=== PATIENT | male | born 1945 | race Caucasian/White ===

== ENCOUNTER 2020-10-10 00:49 | Emergency (ER) | payer MEDICARE, SELFPAY ==
--- NOTE | ~2020-10-10 | XR_ITS ---
EXAMINATION: XR chest 1V portable EXAM DATE: 10/10/2020 01:44 INDICATION: Fever. TECHNIQUE: Portable AP frontal chest x-ray was obtained. Correlation is made to pulmonary CT which wa s subsequently obtained. FINDINGS: The lungs are clear. There are no pleural effusions. Cardiac silhouette is prominent but magnified on this AP technique. There is no pneumothorax suspected. The bones and soft tissues are unremarkable. IMPRESSION: No acute cardiopulmonary findings. Reviewed, dictated and finalized at location A. SERVICE TECHNICIAN
--- NOTE | ~2020-10-10 | CT_ITS ---
EXAMINATION: CTA chest PE protocol EXAM DATE: 10/10/2020 03:39 INDICATION: Dyspnea. TECHNIQUE: Spiral CTA of the chest (pulmonary arteries) was performed with 100 cc Omnipaque 350 intr avenous contrast injection. Images were acquired during the pulmonary arterial phase. Coronal maxi mum intensity projection 3D-reconstructions were created by the technologist on dedicated workstation . Axial, coronal and sagittal reformatted images were reviewed. The dose-length product (DLP) for t his examination was 654.52 mGy-cm. The exposure was tailored according to patient size (auto mA exp osure control), and iterative reconstruction (ASIR) was used as additional dose reduction technique. There is no prior study for comparison. FINDINGS: There are no pulmonary emboli in the 1st through 3rd order (central and interlobar) pulmon edgar arteries. Some loss of attenuation in the segmental pulmonary arteries due to respiratory motion , but no intraluminal filling defects suspected. No thoracic aortic dissection. The lungs are imelda r. There are no pleural or pericardial effusions. Tracheobronchial tree is patent. There is no mediastinal, hilar or axillary lymphadenopathy. There is no pneumothorax. Heart normal in size. There is moderate coronary arterial calcification, arterial sclerosis. Upper abdomen is unremarkabl e. There is thoracic spondylosis without osteoblastic or osteolytic lesions identified. IMPRESSION: 1. No pulmonary emboli or acute findings. Reviewed, dictated and finalized at location A. RCOATER
[2020-10-10 00:52] VITALS: BP 124/76; PULSE 119; RESP 22; TEMP 37.2; O2SAT 96
[2020-10-10 00:59] VITALS: RESP 20; O2SAT 94
--- NOTE | 2020-10-10 01:05 | ED.GENADULT ---
HPI - General Adult General Chief complaint: Fever Stated complaint: prostate biopsy 10/07 - fever shakes Time Seen by Provider: 10/10/20 00:52 Source: RN notes reviewed History of Present Illness HPI narrative: Patient presents emergency room from home for fever. Patient states he has had a intermittent fever for the past 2 days since having a prostate biopsy done on 10/07/[address] Lara. Patient states that he is not currently on any antibiotics he states fevers been up to 101 does improve with ibuprofen which he last took prior to arrival he does note mild intermittent cough but denies any shortness of breath abdominal pain nausea vomiting or any other symptoms states he does have times where he does not feel like he fully empties Related Data Allergies Allergy/AdvReac Type Severity Reaction Status Date / Time No Known Allergies Allergy Mild Verified 09/25/20 10:48 Review of Systems Review of Systems: Narrative: Gen.: Reports fever ENT: Denies congestion Respiratory: Denies shortness of breath reports mild cough CV: Denies chest pain or palpitations GI: Denies abdominal pain nausea, emesis or diarrhea reports feeling of not completely emptying Musculoskeletal: Denies back pain or muscle pain Neuro: Denies numbness, tingling, weakness or focal weakness Skin: Denies rash Except as documented, all other systems reviewed and negative PMFSH Past Medical History Medical History Difficulty controlling anger Elevated PSA Need for hepatitis C screening test Obesity (BMI 30.0-34.9) Osteoarthritis of right thumb Surgical History Surgical History History of spinal surgery disc repair Family History Family History Mother Hypertension Grandparent Family history of cardiovascular disease Family history of malignant neoplasm of brain Sibling Family history of cardiovascular disease Family history of coronary artery disease Father Family history of Alzheimer's disease Social History Social History Smoking status: Current some day smoker Second hand tobacco smoke exposure: Yes Alcohol intake: current Substance use: never Substance use type: does not use Gender identity (if verbalized by the patient): Male Sexual Orientation (if Verbalized by the Patient): Straight or Heterosexual Exam Narrative: Exam Narrative: APPEARANCE: No acute distress, nontoxic, resting in bed EYES: EOMI HEENT: Normocephalic, atraumatic, OMM RESPIRATORY: No respiratory distress Clear to auscultation bilaterally with no rhonchi wheezing or rales. CARDIOVASCULAR: Regular rate and rhythm without murmurs rubs or gallops. ABDOMINAL: Soft, nontender, nondistended, no rebound or guarding MUSCULOSKELETAl: Moves all extremities. No clubbing, cyanosis or edema. NEURO: Awake and alert. Following commands, speech normal, no focal deficits SKIN:: Warm, dry. No rashes lesions or abrasions PSYCHIATRIC: Normal affect/mood, Course Course Emergency Course: Discussed with Dr. Pedersen for urology presentation work-up discussed UA and recent biopsy at this time request patient received dose of Rocephin emergency department and discharged on Augmentin Discussed with patient results of workup and diagnosis. Discussed need for follow-up with primary care, proper use of medication, and reasons to return to the emergency department. Patient understands and agrees to current treatment plan discussed with the patient who is concerned about Covid with his mild cough as well as fever will I do believe is most likely secondary to his UTI will test for Covid at this time Vital Signs Vital signs: Vital Signs Temperature 99.0 F 10/10/20 00:52 Pulse Rate 119 H 10/10/20 00:52 Respiratory Rate 22 H 10/10/20 00:52 Blood Pressure
[2020-10-10] MEDS: SODIUM CHLORIDE 0.9% IV 1,000 ML 999 ML IV CONT (01:42)
[2020-10-10 02:00] VITALS: BP 134/75; PULSE 100; RESP 29; O2SAT 98
[2020-10-10 02:03] LABS: Basophils Percent Auto 0.3 % (0.2-1.2); Eosinophils Absolute Auto 0.1 K/mm3 (0-0.3); Eosinophils Percent Auto 1.5 % (0-4.4); Hematocrit 40.7 % (42.0-52.0); Hemoglobin 14.4 g/dL (14.0-18.0); Immature Granulocyte Absolute 0.03 K/mm3 (0.00-0.031); Immature Granulocyte Percent A 0.5 % (0-0.5); Lymphocytes Absolute Auto 0.43 K/mm3 (0.9-3.2); Lymphocytes Percent Auto 6.5 % (18.3-44.2); Mean Corpuscular HGB Conc 35.4 g/dl (32-36); Mean Corpuscular Hemoglobin 31.6 pg (26-34); Mean Corpuscular Volume 89.3 fl (80-100); Mean Platelet Volume 9.8 fl (7.4-10.4); Monocytes Absolute Auto 0.1 K/mm3 (0.1-0.6); Monocytes Percent Auto 0.9 % (2.6-8.5); Neutrophils Percent Auto 90.3 % (45.5-73.1); Platelet Count Result 186 k/mm3 (150-375); Red Blood Count 4.56 M/mm3 (4.6-6.20); Red Cell Distribution Width 12.4 % (11.5-14.5); White Blood Count 6.6 K/mm3 (4.5-10.0)
[2020-10-10 02:15] LABS: INR 1.1; Prothrombin Time 14.8 Seconds (11.1-14.7)
[2020-10-10 02:16] LABS: Lactic Acid Reflex 1.7 mmol/L (0.7-2.1); Partial Thromboplastin Time 27.5 SECONDS (22.3-36.8)
[2020-10-10 02:17] LABS: Alanine Aminotransferase 22 U/L (4-50); Albumin Level 4.2 g/dL (3.5-5.1); Alkaline Phosphatase 60 U/L (38-126); Anion Gap 8 mmol/L (8-16); Aspartate Amino Transferase 25 U/L (17-59); Bilirubin,Total 0.8 mg/dL (0.2-1.3); Blood Urea Nitrogen 20 mg/dL (9-20); Calcium 9.2 mg/dL (8.4-10.2); Carbon Dioxide 25 mmol/L (22-30); Chloride 102 mmol/L (98-107); Estimated CRCL calculation 55 ml/min; Estimated Glomerular Filt Rate > 60; Glucose 149 mg/dL (75-110); Potassium 4.2 mmol/L (3.4-5.0); Sodium 135 mmol/L (137-145)
[2020-10-10 03:00] VITALS: BP 123/72; PULSE 96; RESP 27; O2SAT 97
[2020-10-10 03:21] LABS: Add Urine Microscopic? YES; Appearance Urine Clear (Clear); Bacteria Urine 2+ /hpf; Bilirubin Urine 1+ (Negative); Blood Urine 1+ (Negative); Color Urine Yellow (Yellow); Glucose Urine UA Negative (Negative); Ketones Urine Negative (Negative); Leukocyte Esterase Ur 2+ LEU/UL (Negative); Mucus Urine Heavy /lpf; Nitrate Urine Negative (Negative); Protein Urine 2+ mg/dL (Negative); Squamous Epithelial Cell Urine Rare /hpf (Few); WBC Urine >75 /hpf
[2020-10-10 04:00] VITALS: BP 127/69; PULSE 92; RESP 26; O2SAT 96
[2020-10-10 05:00] VITALS: BP 123/75; PULSE 88; RESP 27; O2SAT 96
[2020-10-11 19:30] LABS: SARS-CoV-2 RNA PCR Negative
== END 2020-10-10 05:10 | disposition home or self-care (01) ==
PROVIDERS: Emergency Provider Emergency Medicine; PCP Physician Assistant
DX: N39.0 Urinary tract infection, site not specified (principal); Z20.828 Contact with and (suspected) exposure to other viral communicable diseases; E66.9 Obesity, unspecified; Z68.25 Body mass index [BMI] 25.0-25.9, adult; M19.041 Primary osteoarthritis, right hand; F17.200 Nicotine dependence, unspecified, uncomplicated
CPT/HCPCS: 36415; 71045; 71275; 80053; 81001; 83605; 85025; 85610; 85730; 87040; 87077; 87086; 87088; 87186; 87635; 96361; 96365; 99284; C9803; J0696; J7030; Q9967; U0003

== ENCOUNTER 2020-10-10 20:41 | Inpatient (IN) | payer MEDICARE, SELFPAY ==
--- NOTE | ~2020-10-10 | CT_ITS ---
EXAMINATION: CT abdomen pelvis w con DATE: 10/12/2020 09:53 INDICATION: Metastatic evaluation TECHNIQUE: Computed tomography (CT) of the abdomen and pelvis was performed with 100 cc Omnipaque 350 intravenous contrast. The dose-length product was 1064.87 mGy-cm. Automated exposure control and ite rative reconstruction technique were employed. COMPARISON: None. FINDINGS: Heart size normal. Lung bases unremarkable. There is atherosclerosis. No evidence for aneur ysm. No lymphadenopathy. The liver is unremarkable. There is a 11 mm hypovascular lesion of the spleen, image 42. The pancreas , adrenal glands are unremarkable. There are small subcentimeter hypodensities of the kidneys, most l ikely benign. Mild nonspecific symmetric perinephric stranding. No hydronephrosis. Normal appendix. N onobstructive bowel gas pattern. Enlarged prostate gland. Mild-moderate lower lumbar spondylosis. No osteolytic or osteoblastic lesions are identified. IMPRESSION: 1. Small hypovascular 11 mm mass in the spleen, most likely benign. 2: Enlarged prostate gland. Reviewed, dictated and finalized at location A. NCIAL PROFESSIONAL
--- NOTE | ~2020-10-10 | NM_ITS ---
EXAMINATION: NM bone scan whole body DATE: 10/13/2020 15:51 INDICATION: Prostate cancer TECHNIQUE: 23.9 mCi Tc-99m HDP was administered intravenously. Delayed whole-body scintigrams were o btained. COMPARISON: CT chest dated 10/10/[address] abdomen and pelvis dated 10/12/2020 FINDINGS: Mild increased uptake at the superior articulation between the spinous processes of L4 and L5 with as sociated mild degenerative changes seen on prior CT . Mild increased uptake associated with prominent bilateral costochondral calcifications. Mild likely degenerative joint centered uptake at the bilate ral acromioclavicular joints and at the radial aspect of the bilateral carpi. Likely degenerative mil d disc centered uptake at C6-C7. No other suspicious foci of abnormal bone uptake to suggest metastat ic disease. IMPRESSION: 1. No lesions suspicious for metastatic disease. Reviewed, dictated and finalized at location A. ITUTIONAL ASSET MANAGER
--- NOTE | 2020-10-10 20:53 | ED.GENADULT ---
HPI - General Adult General Chief complaint: Urogenital-Male Stated complaint: + urine cultures Time Seen by Provider: 10/10/20 20:51 Source: RN notes reviewed History of Present Illness HPI narrative: Patient presents emergency department from home for positive blood cultures. The patient was seen in the emergency department last night for urinary tract infection given dose of Rocephin and sent home with Augmentin blood cultures came back this evening positive for gram-negative bacilli in both blood cultures I called and discussed with the family and the patient had not been feeling well today still having fevers up to 101 and feeling weak and came back in for further evaluation he was prescribed Augmentin last night and took his last pill at 7:00 tonight patient had a prostate biopsy by Dr. Lara on 07 October and had a positive UA yesterday he denies any abdominal pain nausea vomiting or any other symptoms Related Data Allergies Allergy/AdvReac Type Severity Reaction Status Date / Time No Known Allergies Allergy Mild Verified 10/10/20 21:22 Review of Systems Review of Systems: Narrative: Gen.: D reports fevers and chills ENT: Denies congestion Respiratory: Denies shortness of breath or cough CV: Denies chest pain or palpitations GI: Denies abdominal pain nausea, emesis or diarrhea denies burning, urgency, frequency or hematuria Musculoskeletal: Denies back pain or muscle pain Neuro: Denies numbness, tingling, weakness or focal weakness Skin: Denies rash Except as documented, all other systems reviewed and negative [facility] Past Medical History Medical History Difficulty controlling anger Elevated PSA Need for hepatitis C screening test Obesity (BMI 30.0-34.9) Osteoarthritis of right thumb Surgical History Surgical History History of spinal surgery disc repair Family History Family History Mother Hypertension Grandparent Family history of cardiovascular disease Family history of malignant neoplasm of brain Sibling Family history of cardiovascular disease Family history of coronary artery disease Father Family history of Alzheimer's disease Social History Social History Smoking status: Current some day smoker Second hand tobacco smoke exposure: Yes Alcohol intake: current Substance use: never Substance use type: does not use Gender identity (if verbalized by the patient): Male Exam Narrative: Exam Narrative: APPEARANCE: No acute distress, nontoxic, resting in bed EYES: EOMI HEENT: Normocephalic, atraumatic, OMM RESPIRATORY: No respiratory distress Clear to auscultation bilaterally with no rhonchi wheezing or rales. CARDIOVASCULAR: Regular rate and rhythm without murmurs rubs or gallops. ABDOMINAL: Soft, nontender, nondistended, no rebound or guarding MUSCULOSKELETAl: Moves all extremities. No clubbing, cyanosis or edema. NEURO: Awake and alert. Following commands, speech normal, no focal deficits SKIN:: Warm, dry. No rashes lesions or abrasions PSYCHIATRIC: Normal affect/mood, Course Course Emergency Course: Called and discussed with Dr. Saucedo presentation and work-up. This time recommends patient start on ertapenem agrees with admission to his service and request a consult to ID in the a.m. Discussed with patient and family results of workup and diagnosis. Discussed need for admission. Patient and family understand and agree to current treatment plan Vital Signs Vital signs: Vital Signs Temperature 100.1 F H 10/10/20 21:16 Pulse Rate 83 10/10/20 21:16 Respiratory Rate 16 10/10/20 21:16 Blood Pressure 115/72 10/10/20 21:16 Pulse Oximetry 95 10/10/20 21:16 Temperature 100.1 F H 10/10/20 21:16 Pulse Rate 83 10/10/20 21:16 Respirator
[2020-10-10 21:16] VITALS: BP 115/72; PULSE 83; RESP 16; TEMP 37.8; O2SAT 95
[2020-10-10] MEDS: SODIUM CHLORIDE 0.9% IV 1,000 ML 999 ML IV CONT (21:16)
[2020-10-10 21:20] LABS: Basophils Percent Auto 0.3 % (0.2-1.2); Eosinophils Percent Auto 0.2 % (0-4.4); Hemoglobin 13.5 g/dL (14.0-18.0); Immature Granulocyte Absolute 0.02 K/mm3 (0.00-0.031); Immature Granulocyte Percent A 0.3 % (0-0.5); Lymphocytes Absolute Auto 0.41 K/mm3 (0.9-3.2); Lymphocytes Percent Auto 6.5 % (18.3-44.2); Mean Corpuscular HGB Conc 34.6 g/dl (32-36); Mean Corpuscular Hemoglobin 31.3 pg (26-34); Mean Corpuscular Volume 90.5 fl (80-100); Mean Platelet Volume 9.1 fl (7.4-10.4); Monocytes Absolute Auto 0.4 K/mm3 (0.1-0.6); Monocytes Percent Auto 6.8 % (2.6-8.5); Neutrophils Absolute Auto 5.4 K/mm3 (1.3-6.7); Neutrophils Percent Auto 85.9 % (45.5-73.1); Platelet Count Result 148 k/mm3 (150-375); Red Blood Count 4.31 M/mm3 (4.6-6.20); Red Cell Distribution Width 12.4 % (11.5-14.5); White Blood Count 6.3 K/mm3 (4.5-10.0)
[2020-10-10 21:30] LABS: Alanine Aminotransferase 21 U/L (4-50); Albumin Level 3.9 g/dL (3.5-5.1); Alkaline Phosphatase 54 U/L (38-126); Anion Gap 9 mmol/L (8-16); Aspartate Amino Transferase 29 U/L (17-59); Bilirubin,Total 0.9 mg/dL (0.2-1.3); Blood Urea Nitrogen 15 mg/dL (9-20); Carbon Dioxide 25 mmol/L (22-30); Chloride 101 mmol/L (98-107); Estimated CRCL calculation 79 ml/min; Estimated Glomerular Filt Rate > 60; Glucose 144 mg/dL (75-110); Potassium 4.1 mmol/L (3.4-5.0); Sodium 135 mmol/L (137-145)
[2020-10-10 21:31] LABS: Lactic Acid Reflex 0.9 mmol/L (0.7-2.1)
[2020-10-10] MEDS: ERTAPENEM 1 GM/NS 50 ML 1 GM/50 ML BAG IVPB (22:05)
[2020-10-10 22:36] VITALS: BP 119/67; PULSE 77; RESP 16; TEMP 37.3; O2SAT 96
[2020-10-10 22:50] VITALS: BP 112/61; PULSE 72; RESP 18; TEMP 37.4; O2SAT 97; BMI 32.2
--- NOTE | 2020-10-10 22:50 | ADMGEN ---
This patient, Sage Gallegos, was admitted to 3 [facility] Surg Room 307-01. Patient/family oriented to hospital policies and general routines including ID bracelet, bed and alarms, visiting hours, pain management, procedures, bathroom and other care routines, personal items, smoking policy, room service/diet, and visiting hours. Information on how to activate the Rapid Response Team has been discussed. Patient/Family are encouraged to report perceived risks to care and to ask questions if they do not understand what they are told or what they should do.
[2020-10-10] MEDS: SODIUM CHLORIDE 0.9% IV 1,000 ML 80 ML IV CONT (23:17)
[2020-10-11 04:00] VITALS: BP 117/56; PULSE 76; RESP 20; TEMP 37.7; O2SAT 98
[2020-10-11 06:20] LABS: Basophils Percent Auto 0.4 % (0.2-1.2); Eosinophils Absolute Auto 0.1 K/mm3 (0-0.3); Eosinophils Percent Auto 0.9 % (0-4.4); Hematocrit 37.6 % (42.0-52.0); Immature Granulocyte Absolute 0.03 K/mm3 (0.00-0.031); Immature Granulocyte Percent A 0.5 % (0-0.5); Immature Platelet Fraction Pct 2.4 % (0.9-11.2); Lymphocytes Absolute Auto 0.65 K/mm3 (0.9-3.2); Lymphocytes Percent Auto 11.9 % (18.3-44.2); Mean Corpuscular HGB Conc 34.6 g/dl (32-36); Mean Corpuscular Hemoglobin 31.6 pg (26-34); Mean Corpuscular Volume 91.3 fl (80-100); Mean Platelet Volume 9.6 fl (7.4-10.4); Monocytes Absolute Auto 0.5 K/mm3 (0.1-0.6); Monocytes Percent Auto 8.4 % (2.6-8.5); Neutrophils Absolute Auto 4.3 K/mm3 (1.3-6.7); Neutrophils Percent Auto 77.9 % (45.5-73.1); Platelet Count Result 154 k/mm3 (150-375); Red Blood Count 4.12 M/mm3 (4.6-6.20); Red Cell Distribution Width 12.5 % (11.5-14.5); White Blood Count 5.5 K/mm3 (4.5-10.0)
[2020-10-11 06:47] LABS: Anion Gap 7 mmol/L (8-16); Blood Urea Nitrogen 13 mg/dL (9-20); Calcium 8.4 mg/dL (8.4-10.2); Carbon Dioxide 26 mmol/L (22-30); Chloride 103 mmol/L (98-107); Estimated CRCL calculation 79 ml/min; Estimated Glomerular Filt Rate > 60; Glucose 123 mg/dL (75-110); Sodium 136 mmol/L (137-145)
[2020-10-11 08:00] VITALS: PULSE 76; RESP 20; O2SAT 98
[2020-10-11 08:17] VITALS: BP 116/71; PULSE 85; RESP 20; TEMP 37.4; O2SAT 97
[2020-10-11] MEDS: SODIUM CHLORIDE 0.9% IV 1,000 ML 80 ML IV CONT (09:38)
[2020-10-11 12:00] VITALS: BP 123/78; PULSE 76; RESP 20; TEMP 37.7; O2SAT 98
--- NOTE | 2020-10-11 13:07 | WPDURCON ---
Assessment and Plan Assessment and plan (1) Bacteremia: Code(s): R78.81 - Bacteremia Status: Acute Assessment and Plan: -continue IV antibiotics, await final culture results and tailor discharge antibiotics appropriately -appreciate infectious disease consultation to assist with discharge antibiotic planning (2) Prostate cancer: Onset Date: ~09/2020 Code(s): C61 - Malignant neoplasm of prostate Status: Acute Assessment and Plan: [place] 9 (high-grade) prostate cancer. -plan metastatic workup with CT scan and bone scan. -will plan outpatient detailed consultation with Dr. Lara to discuss management options Urology Consult Note HPI Date Seen: 10/11/20 Requesting Physician: Fadumo Lambert MD Primary Care Provider: Sage Gómez PA-C Consult Narrative Narrative: Sage Gallegos is a 75 year old male who underwent a prostate biopsy on October 07, 2020. The patient felt well for the 1st 24 hours after his biopsy however the subsequent developed lethargy and fatigue. The patient was seen in the emergency department on October 09, 2020 at which time he was diagnosed with a urinary tract infection and discharged home on oral antibiotics - Blood cultures were performed at that time which came back on October 10, 2020 with gram-negative bacilli. Patient was contacted for emergent department and asked to return for evaluation. The patient was subsequently admitted to the hospital due to continued lethargy and gram-negative bacilli present in the urine and blood. Patient continues to feel lethargic this morning, denying chills, fever, dysuria, hematuria. The patient is currently receiving IV antibiotics with ertapenem. A infectious disease consult was called and is pending. I did review the patient's pathology report from prostate biopsy. This showed that 4 of 12 cores showed prostate cancer, the highest with 4+5=9 [place] score Review of Systems Review of Systems: All systems reviewed & are unremarkable except as noted in HPI and below PMFSH Past Medical History Medical History Difficulty controlling anger Elevated PSA Need for hepatitis C screening test Obesity (BMI 30.0-34.9) Osteoarthritis of right thumb Surgical History Surgical History History of spinal surgery disc repair Family History Family History Mother Hypertension Grandparent Family history of cardiovascular disease Family history of malignant neoplasm of brain Sibling Family history of cardiovascular disease Family history of coronary artery disease Father Family history of Alzheimer's disease Social History Social History Years smoked: 20 Smoking status: Current some day smoker Second hand tobacco smoke exposure: Yes Alcohol intake: current Drinks per week: 10 Substance use: never Substance use type: does not use Gender identity (if verbalized by the patient): Male Spiritual care concerns: No Meds Home Medications and Allergies Home Medications Medication Instructions Recorded Confirmed Type atorvastatin 10 mg tablet 10 mg PO DAILY #90 tablet 09/26/20 10/10/20 Rx amoxicillin-pot clavulanate 1 tablet PO Q12H #20 tablet 10/10/20 10/10/20 Rx [Augmentin] Allergies Allergy/AdvReac Type Severity Reaction Status Date / Time No Known Allergies Allergy Mild Verified 10/11/20 00:12 Vital Signs Vital Signs - 24 hr 10/10/20 21:16 10/10/20 22:36 10/10/20 22:50 Temperature 37.8 C H 37.3 C 37.4 C Pulse Rate 83 77 72 Respiratory Rate 16 16 18 Blood Pressure 115/72 119/67 112/61 Pulse Oximetry 95 96 97 10/11/20 04:00 10/11/20 08:17 10/11/20 12:00 Temperature 37.7 C H 37.4 C 37.7 C H Pulse Rate 76 85 76 Respiratory Rate 20 20
[2020-10-11 14:00] VITALS: BP 141/83; PULSE 80; RESP 20; TEMP 37.1; O2SAT 97
--- NOTE | 2020-10-11 16:40 | WPDCN ---
Assessment and Plan Additional Plan 1. Klebsiella pneumoniae bacteremia with likely source genitourinary tract. Status post prostate biopsy on 10/07/2020. Susceptibility of organism is pending. Patient is currently on ertapenem day 2. At this point is reasonable to continue carbapenem with concern the failure of oral antibiotic therapy post biopsy and possibility of an extended beta lactamase resistant gram-negative infection. Will adjust antibiotics once susceptibility pattern is available. I will also repeat blood cultures x2 set in a.m. 2. Elevated PSA status post biopsy. [place] score was 9. Metastatic workup in progress. 3. Date of service 10/11/2020. She see Dr. Fadumo Lambert. HPI Data of Consult Date/Time: 10/11/20 16:40 Requesting Physician: Fadumo Lambert MD Primary Care Provider: Sage Gómez PA-C Consult Narrative Narrative: Sage Gallegos is a 75 year old male with history of elevated PSA, obesity and osteoarthritis apparently on the 07 of October had prostate biopsy subsequently developed fever and chills within 24 hours. Patient was initially seen in the emergency room and the blood and urine culture collected at that time turned to be positive for gram-negative bacilli. Patient was called back to the hospital. I was requested to see him for further antibiotics management. Blood cultures and urine cultures repeated on the is showing Klebsiella pneumoniae. Susceptibility pattern is pending. Patient was empirically started on ertapenem. Currently he states he feels slightly better. Decreased chills. No nausea or vomiting. No flank pain. He denies any hematuria or dysuria. Review of Systems Constitutional: Constitutional: Reports chills (Chills and fever prior to admission) ENT: Reports system reviewed and no additional complaints, except as documented Cardiovascular: Cardiovascular: Reports no additional cardiovascular complaints Respiratory: Respiratory: Reports no additional respiratory complaints Gastrointestinal: Gastrointestinal: Reports no additional gastrointestinal complaints Genitourinary: Genitourinary: Reports no additional male genitourinary complaints Musculoskeletal: Musculoskeletal: Reports no additional musculoskeletal complaints Integumentary/Breasts: Skin/Breast: Reports system reviewed and no additional complaints, except as docu Neurologic: Reports system reviewed and no additional complaints, except as documented Psychiatric: Psychiatric: Reports no additional psychiatric complaints Endocrine: Endocrine: Reports no additional endocrine complaints Hematologic/Lymphatic: Hematologic/Lymphatic: Reports no additional hematologic/lymphatic complaints Allergic/Immunologic: Allergic/Immunologic: Reports no additional allergic/immunologic complaints PMFSH Past Medical History Medical History (Updated 10/11/20 @ 13:12 by Fadumo Lambert MD) Difficulty controlling anger Elevated PSA Need for hepatitis C screening test Obesity (BMI 30.0-34.9) Osteoarthritis of right thumb Prostate cancer (~09/2020) Surgical History Surgical History History of spinal surgery disc repair Family History Family History Mother Hypertension Grandparent Family history of cardiovascular disease Family history of malignant neoplasm of brain Sibling Family history of cardiovascular disease Family history of coronary artery disease Father Family history of Alzheimer's disease Social History Social History Years smoked: 20 Smoking status: Current some day smoker Second hand tobacco smoke exposure: Yes Alcohol intake: current Drinks per week: 10 Substance use: never Substance use type: does not use Gender identity (if verbalized by the patient): Male Spiritual care concerns: No
[2020-10-11 20:00] VITALS: BP 145/83; PULSE 93; RESP 24; TEMP 36.4; O2SAT 93
[2020-10-11] MEDS: ERTAPENEM 1 GM/NS 50 ML 1 GM/50 ML BAG IVPB (21:24)
[2020-10-12 00:20] VITALS: BP 114/77; PULSE 75; RESP 20; TEMP 37.5; O2SAT 92
[2020-10-12 04:00] VITALS: BP 116/72; PULSE 70; RESP 20; TEMP 37.1; O2SAT 93
[2020-10-12 09:47] LABS: Basophils Percent Auto 0.4 % (0.2-1.2); Eosinophils Absolute Auto 0.1 K/mm3 (0-0.3); Eosinophils Percent Auto 2.3 % (0-4.4); Hematocrit 41.4 % (42.0-52.0); Hemoglobin 14.5 g/dL (14.0-18.0); Immature Granulocyte Absolute 0.02 K/mm3 (0.00-0.031); Immature Granulocyte Percent A 0.4 % (0-0.5); Lymphocytes Absolute Auto 1.13 K/mm3 (0.9-3.2); Lymphocytes Percent Auto 21.7 % (18.3-44.2); Mean Corpuscular Hemoglobin 31.7 pg (26-34); Mean Corpuscular Volume 90.6 fl (80-100); Mean Platelet Volume 9.6 fl (7.4-10.4); Monocytes Absolute Auto 0.7 K/mm3 (0.1-0.6); Monocytes Percent Auto 13.6 % (2.6-8.5); Neutrophils Absolute Auto 3.2 K/mm3 (1.3-6.7); Neutrophils Percent Auto 61.6 % (45.5-73.1); Platelet Count Result 177 k/mm3 (150-375); Red Blood Count 4.57 M/mm3 (4.6-6.20); Red Cell Distribution Width 12.2 % (11.5-14.5); White Blood Count 5.2 K/mm3 (4.5-10.0)
[2020-10-12 10:05] LABS: Alanine Aminotransferase 21 U/L (4-50); Albumin Level 4.1 g/dL (3.5-5.1); Alkaline Phosphatase 56 U/L (38-126); Anion Gap 8 mmol/L (8-16); Aspartate Amino Transferase 33 U/L (17-59); Bilirubin,Total 0.7 mg/dL (0.2-1.3); Blood Urea Nitrogen 11 mg/dL (9-20); Carbon Dioxide 27 mmol/L (22-30); Chloride 104 mmol/L (98-107); Estimated CRCL calculation 79 ml/min; Estimated Glomerular Filt Rate > 60; Glucose 112 mg/dL (75-110); Sodium 139 mmol/L (137-145)
[2020-10-12 14:00] VITALS: BP 142/82; PULSE 71; RESP 20; TEMP 36.7; O2SAT 99
[2020-10-12] MEDS: SODIUM CHLORIDE 0.9% IV 1,000 ML 80 ML IV CONT (15:39)
--- NOTE | 2020-10-12 15:42 | WPDUROPN2 ---
Progress Note: A&P Assessment and Plan (1) Bacteremia: Code(s): R78.81 - Bacteremia Status: Acute Assessment and Plan: -blood and urine cultures with Klebsiella - continue IV antibiotics -appreciate infectious disease consultation and their plan for discharge antibiotic course (2) Prostate cancer: Onset Date: ~09/2020 Code(s): C61 - Malignant neoplasm of prostate Status: Acute Assessment and Plan: [place] 9 (high-grade) prostate cancer. -plan metastatic workup. CT scan without lymphadenopathy. bone scan ordered, may be done while inpatient or upon discharge. -will plan outpatient detailed consultation with Dr. Lara to discuss management options. (3) Splenic lesion: Code(s): D73.89 - Other diseases of spleen Status: Acute Assessment and Plan: -likely benign according to report, plan follow-up with primary care physician Subjective Subjective Date/Time Seen: 10/12/20 15:42 The patient states he is feeling much better today. He currently denies fevers, chills, nausea, vomiting, abdominal pain, dysuria or hematuria Review of Systems Review of Systems: All systems reviewed & are unremarkable except as noted in HPI and below Exam Const: General: cooperative and healthy appearing HENMT: Head: normal to inspection Neck: Neck: normal visual inspection Chest: Chest palpation & inspection: normal inspection of the chest Resp: Effort & Inspection: normal respiratory effort Objective Data Vital Signs Vital Signs: Vital Signs - 24 hr 10/11/20 20:00 10/12/20 00:20 10/12/20 04:00 Temperature 36.4 C L 37.5 C 37.1 C Pulse Rate 93 75 70 Respiratory Rate 24 H 20 20 Blood Pressure 145/83 H 114/77 116/72 Pulse Oximetry 93 92 93 Intake/Output Intake/Output: Intake & Output 10/09/20 10/10/20 10/11/20 10/12/20 23:59 23:59 23:59 23:59 Intake Total 2150 1990 410 Output Total 1500 550 Balance 2150 490 -140 Meds/Results Medications: Active Medications Generic Name Dose Route Start Last Admin Trade Name Freq PRN Reason Stop Dose Admin Sodium Chloride 1,000 mls @ 80 mls/hr 10/10/20 21:40 10/12/20 15:39 Normal Saline Iv IV CONT 80 mls/hr .[id number] ANÍBAL Administration Ertapenem 1 gm in 50 mls @ 100 mls/hr 10/11/20 21:00 10/12/20 06:08 Invanz 1 Gm/Ns 50 Ml IVPB Infused Q24H ANÍBAL Infusion Radiology Results: ITS Impressions Abdomen/Pelvis CT 10/12/20 14:43 IMPRESSION: 1. Small hypovascular 11 mm mass in the spleen, most likely benign. 2: Enlarged prostate gland. Labs Labs: Laboratory Results - last 24 hr 10/12/20 10/12/20 09:15 09:15 WBC 5.2 RBC 4.57 L Hgb 14.5 Hct 41.4 L MCV 90.6 MCH 31.7 MCHC 35.0 RDW 12.2 Plt Count 177 MPV 9.6 Immature Gran % (Auto) 0.4 Neut % (Auto) 61.6 Lymph % (Auto) 21.7 [place] % (Auto) 13.6 H Eos % (Auto) 2.3 Baso % (Auto) 0.4 Lymph # (Auto) 1.13 [place] # (Auto) 0.7 H Eos # (Auto) 0.1 Baso # (Auto) 0.0 Abs Immat Gran (auto) 0.02 Absolute Neuts (auto) 3.2 Absolute Nucleated RBC 0.0 Nucleated RBC % 0.0 Sodium 139 Potassium 4.0 Chloride 104 Carbon Dioxide 27 Anion Gap 8 BUN 11 Creatinine 0.90 Estim Creat Clear Calc 79 Estimated GFR > 60 Glucose 112 H Calcium 9.0 Total Bilirubin 0.7 AST 33 ALT 21 Alkaline Phosphatase 56 Total Protein 7.0 Albumin 4.1
[2020-10-12 20:00] VITALS: PULSE 73; RESP 18; O2SAT 98
[2020-10-12] MEDS: ERTAPENEM 1 GM/NS 50 ML 1 GM/50 ML BAG IVPB (21:14)
[2020-10-12 22:00] VITALS: BP 126/77; PULSE 73; RESP 18; TEMP 36.6; O2SAT 98
[2020-10-13] MEDS: SODIUM CHLORIDE 0.9% IV 1,000 ML 80 ML IV CONT (04:56)
[2020-10-13 06:00] VITALS: BP 113/73; PULSE 75; RESP 18; TEMP 37; O2SAT 100
--- NOTE | 2020-10-13 11:51 | WPDUROPN2 ---
Progress Note: A&P Assessment and Plan (1) Bacteremia: Code(s): R78.81 - Bacteremia Status: Acute Assessment and Plan: Culture positive with Klebsiella. Will await recommendation for oral therapy from ID. (2) Prostate cancer: Onset Date: ~09/2020 Code(s): C61 - Malignant neoplasm of prostate Status: Acute Assessment and Plan: Will plan to get bone scan done while inpatient. Then follow up with Dr. Lara for further evaluation and treatment. Subjective Subjective Date/Time Seen: 10/13/20 11:51 S/P prostate biopsy Septic UTI Patient doing much better, denies chills, fever, nausea, vomiting or urinary symptoms. Review of Systems Cardiovascular: Cardiovascular: Denies chest pain Respiratory: Respiratory: Reports no additional respiratory complaints Gastrointestinal: Gastrointestinal: Denies abdominal pain, Denies nausea and Denies vomiting Genitourinary: Genitourinary: Denies hematuria, Denies dysuria and Denies flank pain Exam Resp: Effort & Inspection: normal respiratory effort Cardio: Rate: regular rate GI: GI Palp: Yes Soft to palpation and No Tenderness to palpation present (GI) : General: Yes no CVA tenderness Extrem: General: no edema Objective Data Vital Signs Vital Signs: Vital Signs - 24 hr 10/12/20 14:00 10/12/20 20:00 10/12/20 22:00 Temperature 98.1 F 97.8 F Pulse Rate 71 73 73 Respiratory Rate 20 18 18 Blood Pressure 142/82 H 126/77 Pulse Oximetry 99 98 98 10/13/20 06:00 Temperature 98.6 F Pulse Rate 75 Respiratory Rate 18 Blood Pressure 113/73 Pulse Oximetry 100 Intake/Output Intake/Output: Intake & Output 10/10/20 10/11/20 10/12/20 10/13/20 23:59 23:59 23:59 23:59 Intake Total 0 1989 2139 2079 Output Total 1500 1900 600 Balance 2150 795 369 6760 Meds/Results Medications: Active Medications Generic Name Dose Route Start Last Admin Trade Name Freq PRN Reason Stop Dose Admin Sodium Chloride 1,000 mls @ 80 mls/hr 10/10/20 21:40 10/13/20 04:56 Normal Saline Iv IV CONT 80 mls/hr .[id number] ANÍBAL Administration Ertapenem 1 gm in 50 mls @ 100 mls/hr 10/11/20 21:00 10/12/20 21:44 Invanz 1 Gm/Ns 50 Ml IVPB Infused Q24H ANÍBAL Infusion Radiology Results: ITS Impressions Abdomen/Pelvis CT 10/12/20 14:43 IMPRESSION: 1. Small hypovascular 11 mm mass in the spleen, most likely benign. 2: Enlarged prostate gland.
--- NOTE | 2020-10-13 12:37 | WPDINFPN2 ---
Progress Note: A&P Assessment and Plan (1) Bacteremia: Code(s): R78.81 - Bacteremia Status: Acute Assessment and Plan: 1. Klebsiella bacteremia with infection, due to UTI, doing well. Repeat BCs ng 1 day. Other sources are unlikely 2 Prostate cancer REC CTX x 1 dose this afternoon. Stop ertapenem. Begin cefdinir x 6 days, begin in AM. Ok home later today. F/U urology. Will see prn, thanks Subjective Date/time seen: 10/13/20 12:37 Interval history: feels great, wants to go home. No rigors, no dysuria, no abd pain, no CVA pain, no n/v Exam Narrative: Exam Narrative: afebrile x 2 days Const: General: no acute distress Eyes: General: appearance normal, both eyes and all related structures Resp: Effort & Inspection: normal respiratory effort Auscultation: clear to auscultation bilaterally Cardio: Rate: regular rate Rhythm: regular rhythm Heart sounds: no murmurs GI: GI Palp: Yes Soft to palpation and No Tenderness to palpation present (GI) : Other: no cvat Objective Data Vital Signs Vital Signs: Vital Signs - 24 hr 10/12/20 14:00 10/12/20 20:00 10/12/20 22:00 Temperature 36.7 C 36.6 C Pulse Rate 71 73 73 Respiratory Rate 20 18 18 Blood Pressure 142/82 H 126/77 Pulse Oximetry 99 98 98 10/13/20 06:00 Temperature 37.0 C Pulse Rate 75 Respiratory Rate 18 Blood Pressure 113/73 Pulse Oximetry 100 Intake/Output Intake/Output: Intake & Output 10/10/20 10/11/20 10/12/20 10/13/20 23:59 23:59 23:59 23:59 Intake Total 0 19890 Output Total 1500 1900 600 Balance 2150 329 009 1107 Meds/Results Medications: Active Medications Generic Name Dose Route Start Last Admin Trade Name Freq PRN Reason Stop Dose Admin Sodium Chloride 1,000 mls @ 80 mls/hr 10/10/20 21:40 10/13/20 04:56 Normal Saline Iv IV CONT 80 mls/hr .[id number] ANÍBAL Administration Radiology Results: ITS Impressions Abdomen/Pelvis CT 10/12/20 14:43 IMPRESSION: 1. Small hypovascular 11 mm mass in the spleen, most likely benign. 2: Enlarged prostate gland.
[2020-10-13 14:00] VITALS: BP 125/66; PULSE 64; RESP 14; TEMP 37; O2SAT 100
--- NOTE | 2020-10-13 16:14 | PM.DS ---
DS: Admitting Diagnosis Admitting Diagnosis Admitting Diagnosis: Urosepsis DS: Summary Hospital Course Hospital Course: Admitted 10/11/2020 Time Spent with Patient Time attestation: Patient was admitted d/t Urosepsis secondary to a prostate biopsy on 10/07/[address] Lara. He presented with chills, fatigue, weakness in the ER on 10/11/2020. He was admitted for IV antibiotics. He was treated with two days of Invanz and has shown improvement, and is now stable. He was seen by Infectious disease as well to determine the best course of oral antibiotic therapy. It has been recommended by Dr. Jamison to discharge home with 6 days of Cefdinir BID 300mg. He also had a bone scan done while here as part of his workup for prostate cancer. He will plan to follow up with Dr. Lara to discuss bone scan results and further evaluation/treatment plans. He is to resume a regular diet, activity as tolerated, no straining. Resume home medications, except Amoxicillin which will be stopped and replaced with Cefdinir. Patient will be discharged home today. Exam Resp: Effort & Inspection: normal respiratory effort Cardio: Rate: regular rate GI: GI Palp: Yes Soft to palpation and No Tenderness to palpation present (GI) : General: Yes no CVA tenderness Extrem: General: no edema DS: Data Data Completed and Pending Labs on day of discharge: Preliminary micro results at discharge 10/12/20 09:21 Blood Culture - Preliminary Blood 10/12/20 09:13 Blood Culture - Preliminary Blood Discharge Plan Discharge Attending physician on discharge: Fly Murdock Discharging Clinician: Tereza Macedo Anticipated Discharge Date/Time: 10/13/20 15:00 Patient Disposition: Home, Self-Care Activity: february shower Diet: as tolerated and regular Discharge Instructions: Follow up with Dr. Laar as planned to further discuss treatment of prostate cancer. Call the office to set up the appointment. Start Cefdinir tomorrow and take for 6 days. Patient Instructions: Antibiotic Form, How to Stop Smoking (DC) Stand Alone Forms: General Discharge Information Follow-up/Referrals: Jason Lara MD [Physician] - Discharge Medications: New cefdinir 300 mg Capsule 300 mg PO Q12HR 6 Days Qty: 12 RF: 0 Continued atorvastatin 10 mg tablet 10 mg PO DAILY Qty: 90 RF: 3 Discontinued amoxicillin-pot clavulanate [Augmentin] 875-125 mg tablet 1 tablet PO Q12H Qty: 20 RF: 0 Date of admission: 10/11/20 09:52 Primary Care Provider: Sage Gómez Admitting Provider: Fadumo Lambert Attending physician on admission: Fadumo Lambert Condition: Stable
--- NOTE | 2020-10-13 17:15 | PC.NURSE ---
Pt has discharge orders. Pt has had IV removed, and discharge paperwork reviewed. Opportunities for questions provided. Pt exhibited good understanding of all discharge instructions. Pt will be assisted to the front of the building by staff.
== END 2020-10-13 17:25 | disposition home or self-care (01) | DRG 690 ==
LOC: ANHED 21:48 → ANH3MEDSUR 22:43
PROVIDERS: Internal Medicine Infectious Disease; Admitting Provider Urology; Emergency Provider Emergency Medicine; PCP Physician Assistant; Visit Provider Nurse Practitioner Adult Health
DX: N39.0 Urinary tract infection, site not specified (principal); R78.81 Bacteremia; C61 Malignant neoplasm of prostate; Z98.890 Other specified postprocedural states; F17.200 Nicotine dependence, unspecified, uncomplicated; E66.9 Obesity, unspecified; M19.90 Unspecified osteoarthritis, unspecified site; D73.89 Other diseases of spleen; Z68.32 Body mass index [BMI] 32.0-32.9, adult; Z79.899 Other long term (current) drug therapy
CPT/HCPCS: 36415; 71045; 71275; 74177; 78306; 80048; 80053; 81001; 83605; 85025; 85055; 85610; 85730; 87040; 87077; 87086; 87088; 87186; 96361; 96365; 96367; 96375; 99285; A9561; C9803; G0378; J0131; J0696; J1335; J7030; Q9967; U0003

== ENCOUNTER 2024-10-25 08:49 | Outpatient (CLI) | payer MEDICARE, SELFPAY ==
--- NOTE | ~2024-10-25 | CT_ITS ---
EXAMINATION: CT lung screening DATE: 10/25/2024 09:18 INDICATION: Personal history of nicotine dependence TECHNIQUE: Computed tomography (CT) of the chest was performed without intravenous contrast. The dose -length product was 246.22 mGy-cm. Automated exposure control and iterative reconstruction technique were employed. COMPARISON: CT dated 10/10/2020 FINDINGS: No focal airspace consolidation. Heart size normal. There is atherosclerosis of the aorta a nd coronary arteries. No endobronchial lesions. No pneumothorax. No significant pleural or pericardia l effusion. No mediastinal lymphadenopathy. Moderate spondylosis at the thoracolumbar junction. IMPRESSION: 1. Lung-RADS category 1: Negative. Continue annual screening with noncontrast low-dose chest CT in 12 months. Reviewed, dictated and finalized at location B. FEEDER IMPRESSION: 1. Lung-RADS category 1: Negative. Continue annual screening with noncontrast l ow-dose chest CT in 12 months.
--- NOTE | ~2024-10-25 | US_ITS ---
EXAMINATION: US aorta [facility] DATE: 10/25/2024 12:04 FOOD SERVICE TECHNICIAN INDICATION: Abdominal aortic aneurysm screening. Smoking history. High cholesterol. TECHNIQUE: Grayscale, color Doppler, and pulsed Doppler images of the aorta and common iliac arteries were obtained. COMPARISON: None. FINDINGS: The proximal aorta measures 2.9 cm greatest sagittal dimension. The mid aorta measures 2.2 cm greates t sagittal dimension. The distal aorta measures 2 cm greatest sagittal dimension. The right common in ternal iliac artery measures 1.4 cm. The left common iliac artery measures 1.4 cm. IMPRESSION: 1. Normal caliber aorta without aneurysm. Reviewed, dictated and finalized at location B. SERVICE TECHNICIAN
== END 2024-10-25 08:50 | disposition home or self-care (01) ==
PROVIDERS: PCP Family Medicine; Visit Provider Family Medicine
DX: Z12.2 Encounter for screening for malignant neoplasm of respiratory organs (principal); Z87.891 Personal history of nicotine dependence
CPT/HCPCS: 71271; 76706